=== PATIENT | female | born 2005 | race African-American/Black ===

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

== ENCOUNTER 2024-01-03 08:48 | Emergency (ER) | payer OTHER ==
[~2024-01-03] VITALS: Ht 180.3 cm; Wt 79.5 kg
[~2024-01-03 08:48] MED LIST: ONDA-282 PO
[2024-01-03 09:36] VITALS: TEMP 97.3
[2024-01-03 09:45] LABS: BASO % 0.1 % (0.0-1.0); EOS % 0.1 % (0.0-3.0); HEMATOCRIT 40.1 % (36.0-47.0); HEMOGLOBIN 13.1 g/dl (12.0-15.5); LYMPH # 0.8 10^3/uL (1.5-5.0); LYMPH % 10.4 % (24.0-44.0); MEAN CORPUSCULAR HEMOGLOBIN 29.1 pg (27.0-33.0); MEAN CORPUSCULAR HGB CONC 32.7 g/dl (32.0-36.5); MEAN CORPUSCULAR VOLUME 89.1 fl (80.0-96.0); MONO # 0.6 10^3/uL (0.0-0.8); MONO % 7.4 % (2.0-8.0); NEUTROPHILS # 6.3 10^3/uL (1.5-8.5); NEUTROPHILS % 81.6 % (36.0-66.0); PLATELET COUNT, AUTOMATED 220 10^3/uL (150-450); WHITE BLOOD COUNT 7.7 10^3/uL (4.0-10.0)
[2024-01-03 10:03] LABS: CK-MB VALUE MASS < 1.0 NG/ML (<3.6)
[2024-01-03 10:04] LABS: CPK CREATINE PHOSPHOKINASE 138 U/L (34-145); MB/CK RELATIVE INDEX 0.72 (< OR =4)
[2024-01-03 10:05] LABS: BLOOD UREA NITROGEN 9 MG/DL (9-23); CALCIUM LEVEL 9.8 MG/DL (8.5-10.1); CARBON DIOXIDE LEVEL 29 MMOL/L (20-31); CHLORIDE LEVEL 107 MMOL/L (98-107); CREATININE FOR GFR 0.79 MG/DL (0.55-1.30); GLUCOSE, FASTING 103 MG/DL (60-100); SODIUM LEVEL 138 MMOL/L (136-145)
[2024-01-03 10:06] LABS: THYROID STIMULATING HORMONE 0.009 uIU/ML (0.48-4.17)
[2024-01-03] MEDS ORDERED: HOME MED LIST COMPLETE! XX SCH (10:25)
[2024-01-03] MEDS: ACETAMINOPHEN 325 MG TAB PO ONE (10:38)
[2024-01-03 11:23] LABS: CK-MB VALUE MASS < 1.0 NG/ML (<3.6)
[2024-01-03 11:25] LABS: CPK CREATINE PHOSPHOKINASE 128 U/L (34-145); MB/CK RELATIVE INDEX 0.78 (< OR =4)
[2024-01-03 11:49] VITALS: BP 127/76
[2024-01-03 12:19] LABS: HCG, SERUM QUALITATIVE NEGATIVE (NEGATIVE)
[2024-01-03 12:33] VITALS: O2SAT 98
== END 2024-01-03 12:39 | disposition home or self-care (01) ==
LOC: M ED 08:48 → EDBD 08:48 → M ED 12:39
DX: R55 Syncope and collapse (principal); R94.6 Abnormal results of thyroid function studies

== ENCOUNTER 2024-04-15 03:12 | Inpatient (IN) | payer OTHER ==
[~2024-04-15] VITALS: Ht 180.3 cm; Wt 78.8 kg
[2024-04-15 03:48] LABS: HEMOGLOBIN 12.6 g/dl (12.0-15.5); MEAN CORPUSCULAR HEMOGLOBIN 29.5 pg (27.0-33.0); MEAN CORPUSCULAR HGB CONC 33.2 g/dl (32.0-36.5); PLATELET COUNT, AUTOMATED 219 10^3/uL (150-450); RED BLOOD COUNT 4.27 10^6/uL (4.00-5.40); WHITE BLOOD COUNT 5.8 10^3/uL (4.0-10.0)
[2024-04-15 04:04] LABS: HCG, SERUM QUALITATIVE NEGATIVE (NEGATIVE)
[2024-04-15 04:15] LABS: ETHYL ALCOHOL (ETHANOL) 0.005 % (0.000-0.010)
[2024-04-15 04:17] LABS: ALBUMIN 3.9 G/DL (3.2-5.2); ALKALINE PHOSPHATASE 96 U/L (35-104); ALT/SGPT 12 U/L (7.0-40); AST/SGOT 15 U/L (<34); BILIRUBIN,DIRECT 0.1 MG/DL (<0.4); BILIRUBIN,TOTAL 0.4 MG/DL (0.3-1.2); BLOOD UREA NITROGEN 11 MG/DL (9-23); CALCIUM LEVEL 8.8 MG/DL (8.5-10.1); CARBON DIOXIDE LEVEL 26 MMOL/L (20-31); CHLORIDE LEVEL 107 MMOL/L (98-107); CREATININE FOR GFR 0.86 MG/DL (0.55-1.30); GLUCOSE, FASTING 93 MG/DL (60-100); POTASSIUM SERUM 3.7 MMOL/L (3.5-5.1); SALICYLATE LEVEL < 3.0 MG/DL (<30); SODIUM LEVEL 141 MMOL/L (136-145); TOTAL PROTEIN 7.7 G/DL (5.7-8.2)
[2024-04-15 04:20] LABS: THYROID STIMULATING HORMONE 7.519 uIU/ML (0.48-4.17)
[2024-04-15 04:55] LABS: AMPHETAMINES LEVEL URINE NEGATIVE (NEGATIVE); BARBITURATES URINE NEGATIVE (NEGATIVE); CANNABINOIDS URINE NEGATIVE (NEGATIVE); PHENCYCLIDINE URINE NEGATIVE (NEGATIVE)
[2024-04-15 04:56] LABS: BENZODIAZEPINES URINE NEGATIVE (NEGATIVE); COCAINE METABOLITE URINE NEGATIVE (NEGATIVE); METHADONE URINE NEGATIVE (NEGATIVE); OPIATES URINE NEGATIVE (NEGATIVE)
[2024-04-15] MEDS ORDERED: MED REC CURRENTLY UNOBTAINABLE XX SCH (06:45)
[2024-04-15] MEDS ORDERED: HOME MED LIST COMPLETE! XX SCH (06:50)
[2024-04-15 15:13] VITALS: BP 131/85; TEMP 97.8; O2SAT 100
[2024-04-15] MEDS ORDERED: LORazepam 1 MG TAB PO PRN (20:20)
[2024-04-15] MEDS ORDERED: MOM 30ML SUSPENSION UDC PO PRN (20:20)
[2024-04-15] MEDS ORDERED: diphenhydrAMINE 25MG CAP PO PRN (20:20)
[2024-04-15] MEDS ORDERED: ACETAMINOPHEN 325 MG TAB PO PRN (20:20)
[2024-04-15] MEDS ORDERED: IBUPROFEN 400MG TAB PO PRN (20:20)
[2024-04-15] MEDS ORDERED: traZODone 50 MG TAB PO PRN (20:20)
[2024-04-15] MEDS ORDERED: MAALOX 30 ML SUSP *UDC PO PRN (20:20)
[2024-04-15] MEDS ORDERED: OLANZapine ORAL DISINTEGRATING TAB 5MG PO PRN (20:20)
[2024-04-16 06:30] VITALS: BP 110/53; TEMP 98.3; O2SAT 99
[2024-04-16] MEDS: NICOTINE 14 MG/24 HR TRANSDERMAL TD SCH (08:18)
[2024-04-16 15:34] VITALS: BP 128/83; TEMP 97.7; O2SAT 100
[2024-04-17 06:32] VITALS: BP 139/55; TEMP 97.1; O2SAT 100
[2024-04-17 12:44] VITALS: BP 139/55; TEMP 97.1; O2SAT 100
[2024-04-17 16:37] VITALS: BP 149/75; TEMP 98.5; O2SAT 100
[2024-04-18 06:29] VITALS: BP 130/84; TEMP 97.8; O2SAT 100
== END 2024-04-18 09:30 | disposition home or self-care (01) | DRG 881 ==
LOC: M ED 03:12 → M ED INP 14:16 → M PSY 15:07
PROVIDERS: ADMIT Psychiatry & Neurology Psychiatry; ATTEND Psychiatry & Neurology Psychiatry
DX: F32.A Depression, unspecified (principal); R45.851 Suicidal ideations; Z91.410 Personal history of adult physical and sexual abuse

== ENCOUNTER → 2024-07-14 | Outpatient (REF) | LOC: M PLAIMG 13:15 | PROVIDERS: ATTEND Internal Medicine | DX: R06.02 Shortness of breath (principal) ==